=== PATIENT | female | born 1995 | race Caucasian/White ===

== ENCOUNTER 2018-01-27 12:23 | Emergency (ER) | payer OTHER, MEDICAID ==
[~2018-01-27] VITALS: Ht 167.6 cm; Wt 61.2 kg
[~2018-01-27 12:23] MED LIST: BACTRIM DS TAB1 EACH PO; BIRTH CONTROL; CEFDINIR300 MG PO; CIPROFLOXIN HC2.5 M1 OPHTHALMIC; CONCERTA18 M1 PO; CONCERTA54 MG PO; DOXYCYCLINE 10100 MG PO; ERYTHROMYCIN E3.5 G1 OPHTHALMIC; EYE DROP15 ML OP; FLAGYL500 MG PO; SINGULAIR 10 MG10 M1 PO; TRINESSA1 EACH PO; ZOFRAN ODT4 MG PO; ZOFRAN4 MG PO
[2018-01-27] MEDS ORDERED: CONCERTA36 M1 PO (12:38)
[2018-01-27] MEDS ORDERED: TRINESSA1 EACH PO (12:39)
[2018-01-27 13:10] LABS: URINE BILIRUBIN NEGATIVE (Negative); URINE BLOOD NEGATIVE (Negative); URINE CLARITY CLEAR; URINE COLOR YELLOW; URINE GLUCOSE-RANDOM NEGATIVE (Negative); URINE KETONES NEGATIVE (Negative); URINE LEUKOCYTES-REFLEX 1+ (Negative); URINE NITRITE-REFLEX NEGATIVE (Negative); URINE PROTEIN NEGATIVE (Negative); URINE SPECIFIC GRAVITY 1.025 (1.005-1.030); URINE UROBILINOGEN 0.2 E.U./dl (0.2-1.0)
[2018-01-27 13:17] LABS: BACTERIA-REFLEX 1-9 Few /HPF (None Seen); SQUAMOUS 0-3 Few /LPF (0-3); URINE RBC 0-2 Rare /HPF (0-2); URINE WBC-REFLEX 6-15 Few /HPF (0-5)
[2018-01-27 13:18] LABS: CASTS None Seen /LPF (None Seen); CRYSTALS None Seen /LPF (None Seen); MUCUS 0-3 Light strn/LPF (None Seen)
[2018-01-27] MEDS ORDERED: MACROBID 100 M100 M3 PO (15:38)
[2018-01-27 15:50] VITALS: BP 122/81
== END 2018-01-27 15:54 | disposition home or self-care (01) ==
LOC: M.ERS 12:23
PROVIDERS: Physician Assistant Surgical
DX: N39.0 Urinary tract infection, site not specified (principal); F90.9 Attention-deficit hyperactivity disorder, unspecified type; F41.9 Anxiety disorder, unspecified; F17.210 Nicotine dependence, cigarettes, uncomplicated; Z88.1 Allergy status to other antibiotic agents

== ENCOUNTER 2018-03-19 22:32 | Emergency (ER) | payer OTHER, MEDICAID ==
[~2018-03-19] VITALS: Ht 167.6 cm; Wt 61.7 kg
[~2018-03-19 22:32] MED LIST changes: +CONCERTA36 M1 PO; +MACROBID 100 M100 M3 PO
[2018-03-19] MEDS ORDERED: ANUSOL-HC25 MG RECTAL (23:24)
[2018-03-19 23:32] VITALS: BP 124/82
== END 2018-03-19 23:32 | disposition home or self-care (01) ==
LOC: M.ERS 22:32
DX: K64.4 Residual hemorrhoidal skin tags (principal); K60.2 Anal fissure, unspecified; F41.9 Anxiety disorder, unspecified; F98.8 Other specified behavioral and emotional disorders with onset usually occurring in childhood and adolescence

== ENCOUNTER 2018-06-28 18:17 | Emergency (ER) | payer MEDICAID ==
[~2018-06-28] VITALS: Ht 167.6 cm; Wt 63.5 kg
[~2018-06-28 18:17] MED LIST changes: +ANUSOL-HC25 MG RECTAL
[2018-06-28] MEDS ORDERED: MYDAYIS ER 1212.5 MG PO (18:29)
[2018-06-28 18:49] VITALS: BP 141/91
== END 2018-06-28 18:49 | disposition home or self-care (01) ==
LOC: M.ERS 18:17
DX: R19.5 Other fecal abnormalities (principal); F41.9 Anxiety disorder, unspecified; F17.210 Nicotine dependence, cigarettes, uncomplicated; Z88.1 Allergy status to other antibiotic agents

== ENCOUNTER 2018-12-22 12:37 | Emergency (ER) | payer OTHER ==
[~2018-12-22] VITALS: Ht 167.6 cm; Wt 63.5 kg
[~2018-12-22 12:37] MED LIST changes: +MYDAYIS ER 1212.5 MG PO
[2018-12-22] MEDS ORDERED: PRENATA CHEWAB1 EACH PO (12:49)
[2018-12-22] MEDS ORDERED: KEFLEX500 M1 PO (13:15)
[2018-12-22 13:18] LABS: ABSOLUTE LYMPHOCYTES 1.2 thou/uL (0.8-5.3); ABSOLUTE MONOCYTES 0.4 thou/uL (0.0-1.2); ABSOLUTE NEUTROPHILS 2.6 thou/uL (1.6-8.1); BASOPHILS 0.8 %; EOSINOPHILS 0.7 %; HEMATOCRIT 39.5 % (37.0-47.0); HEMOGLOBIN 13.5 gm/dL (12.0-15.0); LYMPHOCYTES 27.5 %; MCH 30.9 pg (26.0-34.0); MCHC 34.1 g/dL (28.0-37.0); MCV 90.6 fL (80.0-100.0); MONOCYTES 10.3 %; MPV 7.5 fl. (7.2-11.1); NUCLEATED RBCS 0 /100WBC; PLATELET COUNT* 271 thou/uL (150-400); POLYS 60.7 %; RBC 4.36 mil/uL (4.20-5.00); RDW-CV 13.8 % (10.5-14.5); WBC 4.4 thou/uL (4.0-11.0)
[2018-12-22 13:32] LABS: URINE BILIRUBIN NEGATIVE (Negative); URINE BLOOD TRACE (Negative); URINE CLARITY CLEAR; URINE COLOR YELLOW; URINE GLUCOSE-RANDOM NEGATIVE (Negative); URINE KETONES NEGATIVE (Negative); URINE LEUKOCYTES-REFLEX NEGATIVE (Negative); URINE NITRITE-REFLEX NEGATIVE (Negative); URINE PROTEIN NEGATIVE (Negative); URINE UROBILINOGEN 0.2 E.U./dl (0.2-1.0)
[2018-12-22 13:33] LABS: CALCIUM 9.1 mg/dL (8.5-10.1); CREATININE 0.7 mg/dL (0.6-1.3); POTASSIUM 3.4 mmol/L (3.5-5.1)
[2018-12-22 14:30] VITALS: BP 114/69
== END 2018-12-22 14:30 | disposition home or self-care (01) ==
LOC: M.ERS 12:37
PROVIDERS: Nurse Practitioner Psychiatric/Mental Health
DX: O26.851 Spotting complicating pregnancy, first trimester (principal); F17.210 Nicotine dependence, cigarettes, uncomplicated; F41.9 Anxiety disorder, unspecified; F98.8 Other specified behavioral and emotional disorders with onset usually occurring in childhood and adolescence; Z88.1 Allergy status to other antibiotic agents; Z3A.01 Less than 8 weeks gestation of pregnancy

== ENCOUNTER 2019-12-13 10:27 | Emergency (ER) | payer OTHER, MEDICAID ==
[~2019-12-13] VITALS: Ht 167.6 cm; Wt 63.5 kg
[~2019-12-13 10:27] MED LIST changes: +KEFLEX500 M1 PO; +PRENATA CHEWAB1 EACH PO
[2019-12-13 10:46] VITALS: BP 124/83
== END 2019-12-13 10:50 | disposition home or self-care (01) ==
LOC: M.ERS 10:27
DX: L65.9 Nonscarring hair loss, unspecified (principal); F17.210 Nicotine dependence, cigarettes, uncomplicated; Z88.1 Allergy status to other antibiotic agents